=== PATIENT | female | born 1980 | race Caucasian/White ===

== ENCOUNTER → 2017-08-14 | Outpatient (CLI) | payer BC ==
[2017-08-14 16:27] LABS: Basophils % (A) 0 %; CH 29.2; CHCM 32.6; Eosinophils # (A) 0.2 k/uL (0-0.7); Eosinophils % (A) 3 %; HCT 42.8 % (34.0-46.0); HDW 3.18; HGB 14.1 gm/dL (11.4-16.0); Luc % (Auto) 2; Lymphocytes # (A) 3.7 k/uL (1.0-4.8); Lymphocytes % (A) 42 %; MCH 29.8 pg (25.0-35.0); MCHC 33.1 g/dL (31.0-37.0); MCV 90.3 fL (80.0-100.0); Mean Platelet Volume 7.6; Monocytes # (A) 0.4 k/uL (0-1.0); Monocytes % (A) 4 %; Neutrophils # (A) 4.1 k/uL (1.3-7.7); Neutrophils % (A) 48 %; RBC 4.74 m/uL (3.80-5.40); RDW 13.8 % (11.5-15.5); WBC 8.6 k/uL (3.8-10.6); WBC (Perox) 8.92
== END | disposition home or self-care (01) ==
LOC: MERGE 16:00 → LABPAT 16:00
PROVIDERS: ATTEND Obstetrics & Gynecology Obstetrics
DX: Z01.812 Encounter for preprocedural laboratory examination (principal); N92.0 Excessive and frequent menstruation with regular cycle; N84.0 Polyp of corpus uteri
CPT/HCPCS: 36415; 85025

== ENCOUNTER 2017-08-22 06:20 | Day surgery (SDC) | payer BC ==
[2017-08-17 16:41] VITALS: BMI 34.9
--- NOTE | 2017-08-21 17:06 | HP ---
HISTORY AND PHYSICAL HISTORY OF PRESENT ILLNESS: This is a 37-year-old female, 2, para 2-0-0-2 with last menstrual period of June 16 that complains of changes in her menstrual cycles. She states her menstrual cycles are regular every 28-30 days, lasting 5-7 days, they are heavy with clots. She does note dysmenorrhea associated with her menstrual cycle. She is currently desirous of treatment at this time. She does note 2 prior C-sections secondary to large for gestational size. PAST MEDICAL HISTORY: None. PAST SURGICAL HISTORY: 1. in 2006, 2010. 2. Tonsillectomy in 1991. MEDICATION LIST: Zoloft she takes daily. ALLERGIES: No known drug allergies. PAST FAMILY HISTORY: None. Mother and father are alive and well. REPRODUCTIVE HISTORY: She is a 2, para 2-0-0-2 with two prior C-sections with large for gestational age. No complications with these pregnancies. SOCIAL HISTORY: She is a 1 pack per day smoker and an occasional alcohol user. She denies illicit drug use. REVIEW OF SYSTEMS: She denies fever, headaches, changes in breast tenderness, new onset lumps, or nipple discharge. She denies nausea, vomiting, diarrhea, constipation. She admits to dysmenorrhea, menorrhagia with clots. She denies urgency, frequency, dysuria, or incontinence. PHYSICAL EXAM: She is a well-nourished, well-developed, alert female. HEENT:HEAD: Normocephalic, atraumatic. Neck is no lymphadenopathy at present. Chest: Her lungs were clear to auscultation bilaterally. Heart: Her heart rate was regular in rate and rhythm. No murmurs were appreciated on exam. Genitourinary her external genitalia was normal in appearance, no inflammatory lesions were present. The vaginal vault was noted to be normal in nature. No masses and pink rugae was noted. The bladder was nontender to palpation. The cervix was visualized. Healthy in appearance. Nontender. No discharge was noted. It was noted to be very anterior in presentation. The uterus was nontender. No masses were present and the uterus appeared to be midline on exam. There was no adnexal tenderness or masses. Her perineum was normal. Neurological: She was alert and oriented to time and place. ASSESSMENT: Dysfunctional uterine bleeding. PLAN: We will plan for hysteroscopy, dilation and curettage with endometrial ablation. We did recommend Cytotec prior to this procedure being done secondary to the position of her cervix. She is well aware of this and wished to proceed. An ultrasound was done, which revealed normal appearing uterus with questionable endometrial polyp. She is also aware of this. The procedure is reviewed with the patient in detail. Risks of perforation, bleeding, infection were discussed with the patient. Questions were answered and informed consent was obtained. MMODL / IJN: [id number] /
[~2017-08-22 06:20] MED LIST: HYDROmorphone 0.5 MG/0.5 ML SYRINGE IVP PRN; LACTATED RINGERS 1,000 ML IV SCH; ONDANSETRON 4 MG/2 ML VIAL IVP PRN; Pre Op ABX Message 1 EACH MISC MISCELLANE ONE
[2017-08-22] MEDS ORDERED: LIDOCAINE 1% 20 ML VIAL (10MG/ML) FOR IV START INTRADERMA ONE (06:45)
[2017-08-22] MEDS ORDERED: DEXAMETHASONE SOD PHOSPHATE 10 MG/ML 1 ML VIAL IV ONE (06:45)
[2017-08-22] MEDS ORDERED: fentaNYL (PF) 50 MCG/ML 2 ML AMP ONE (07:39)
[2017-08-22] MEDS ORDERED: GLYCOPYRROLATE 0.2 MG/ML 2 ML VIAL ONE (07:39)
[2017-08-22] MEDS ORDERED: KETOROLAC 30 MG/ML 1 ML VIAL ONE (07:39)
[2017-08-22] MEDS ORDERED: LIDOCAINE 1% INJ 10MG/ML (20 ML MDV) ONE (07:39)
[2017-08-22] MEDS ORDERED: MIDAZOLAM 2 MG/2 ML VIAL ONE (07:39)
[2017-08-22] MEDS ORDERED: PROPOFOL 10 MG/ML 20 ML VIAL IV ONE (07:39)
[2017-08-22] MEDS ORDERED: Acetaminophen-Codeine 300-30mg TAB PO PRN ×2 (08:16)
--- NOTE | 2017-08-22 08:23 | P.OP ---
Date of Procedure: 08/22/17 Preoperative Diagnosis: Dysfunctional uterine Bleeding, endometrial polyp, menorrhagia Postoperative Diagnosis: Same Procedure(s) Performed: Hysteroscopy, dilation and curettage, endometrial ablation with NovaSure Anesthesia: other (LMA) Surgeon: Aleksandra Shipley Estimated Blood Loss (ml): 10 IV fluids (ml): 300 Urine output (ml): 50 Pathology: other (Endometrial curettings) Condition: stable Disposition: PACU Indications for Procedure: Menorrhagia, endometrial polyps Operative Findings: Multiple endometrial polyps otherwise normal-appearing endometrial cavity visualized 3 times during procedure secondary to length of cavity. Description of Procedure: Patient was taken to the operating room where general anesthesia was obtained without difficulty by the anesthesia department. She was prepped and draped in the normal sterile fashion in the dorsal lithotomy position. Weighted speculum placed in the posterior vaginal vault. A red rubber catheter was then used to drain the bladder of clear yellow urine. The cervix was then dilated carefully to approximately 18-Ugandan. Hysteroscope was placed through the cervix and toward the endometrial cavity. On inspection of the patient's endometrial cavity the above-noted findings were visualized. A sharp curettage was performed until gritty texture was noted until all 4 quadrants of the endometrial cavity the polyps were removed and visualized grossly. The NovaSure device was inserted into the endometrial cavity and set according to the patient's uterine measurements a length of 6.5 width of 4.5 power of 161 for 67 seconds. The device was operated according to electronics manufacturer's instructions and was noted to pass the initial cavity assessment. Once the cavity assessment was passed the device was enabled and the cycle was completed. Afterwards device was removed from the endometrial cavity and hysteroscope was once again placed into the endometrial cavity to visualize the endometrial cavity. Secondary to the size of the cavity the fundus was visualized and minimal charring was noted from the endometrial ablation. All counts were correct 2 and patient tolerated procedure well she was taken the recovery room awake and in stable condition.
[2017-08-22 08:38] VITALS: TEMP 97.1
[2017-08-22] MEDS ORDERED: SERTRALINE 50 MG PO SCH (09:00)
[2017-08-22 09:16] VITALS: RESP 18
[2017-08-22 09:49] VITALS: BP 135/91; PULSE 88
== END 2017-08-22 10:24 | disposition home or self-care (01) ==
LOC: OR 06:20 → MERGE 06:20 → OR 10:24
PROVIDERS: ATTEND Obstetrics & Gynecology Obstetrics
DX: N87.9 Dysplasia of cervix uteri, unspecified (principal); N84.0 Polyp of corpus uteri; F17.200 Nicotine dependence, unspecified, uncomplicated; Z79.899 Other long term (current) drug therapy
CPT/HCPCS: 58563; 81025; 88305; J2250; J1100; J2405; J2001; J3010; J1885; J2704; J1170

== ENCOUNTER 2017-08-23 13:30 | Emergency (ER) | payer BC ==
[2017-08-23 13:34] VITALS: RESP 16
[2017-08-23] MEDS ORDERED: IBUPROFEN 800 MG TAB PO STA (14:48)
[2017-08-23] MEDS ORDERED: diphenhydrAMINE 50 MG CAP PO STA (14:48)
--- NOTE | 2017-08-23 14:54 | ED ---
General Adult HPI - General Chief complaint: Recheck/Abnormal Lab/Rx Stated complaint: Post Surgery Reaction Time Seen by Provider: 08/23/17 14:37 Source: patient Mode of arrival: ambulatory Limitations: no limitations - History of Present Illness Initial comments: Patient is a 37-year-old female status post endometrial ablation yesterday who presents with a chief complaint of warmth and flushing in her upper extremities. She was seen by her SEWER REPAIRER today who instructed her to go to the emergency department. On initial evaluation, vital signs are stable, patient is in no acute distress. Patient states she woke up this morning and felt that her arms were warm. Patient denies any pain or systemic fever. Patient states she does not have any pain from surgery. She does not have any bleeding or discharge. Patient has no other complaints at this time. She cannot identify any inciting incidences. There are no aggravating or alleviating factors. - Related Data Home Medications Medication Instructions Recorded Confirmed Sertraline [Zoloft] 50 mg PO DAILY 08/17/17 08/23/17 Ibuprofen [Motrin] 400 mg PO Q6HR PRN 08/23/17 08/23/17 Allergies Allergy/AdvReac Type Severity Reaction Status Date / Time No Known Allergies Allergy Verified 08/23/17 14:37 Review of Systems ROS Statement: Those systems with pertinent positive or pertinent negative responses have been documented in the HPI. ROS Other: All systems not noted in ROS Statement are negative. Constitutional: Denies: fever Eyes: Denies: vision change ENT: Denies: congestion Respiratory: Denies: dyspnea Cardiovascular: Denies: chest pain Endocrine: Denies: fatigue Gastrointestinal: Denies: abdominal pain, nausea, vomiting Genitourinary: Denies: dysuria, discharge Musculoskeletal: Denies: back pain Skin: Reports: rash Neurological: Denies: headache Past Medical History Past Medical History: No Reported History History of Any Multi-Drug Resistant Organisms: None Reported Additional Past Surgical History / Comment(s): uterine ablation Past Psychological History: Anxiety Smoking Status: Current every day smoker Past Alcohol Use History: None Reported Past Drug Use History: None Reported General Exam Limitations: no limitations General appearance: alert, in no apparent distress Head exam: Present: atraumatic, normocephalic Eye exam: Present: normal appearance Respiratory exam: Present: normal lung sounds bilaterally Cardiovascular Exam: Present: regular rate, normal rhythm, normal heart sounds GI/Abdominal exam: Present: soft. Absent: distended, tenderness Rectal exam: Present: deferred Extremities exam: Present: other (Patient has warmth and redness to bilateral upper extremities. The skin is not raised, it is nontender.) Neurological exam: Present: alert, oriented X3 Psychiatric exam: Present: normal affect, normal mood Skin exam: Present: warm, dry, intact Course Vital Signs 08/23/17 08/23/17 13:31 15:18 Temperature 98.3 F 98.4 F Pulse Rate 84 Respiratory 16 Rate Blood Pressure 170/84 O2 Sat by Pulse 99 Oximetry Medical Decision Making - Medical Decision Making Patient is a 37-year-old female status post endometrial ablation yesterday presents from her SEWER REPAIRER's office with a chief complaint of bilateral upper extremity rash, and warmth. Initial evaluation, patient appears be in no distress, she denies any sort of pain. She is breathing and conversing easily. Distribution of the warmth and erythema is the outer upper extremities, across the top of her back. I asked the patient if she came in contact with any new materials or products. She states that she washed with Carmen soap yesterday as instructed however she does not know if there was a blanket wrapped around her shoulders after surgery. Patient will be given Motrin, and Benadryl, and reevaluated. At this time, vital signs are stable and the patient appears comfortable. It is less likely that there is a life- threatening etiology causing her symptoms today. 3:50 PM Patient was given a dose of Motrin, and a dose of droperidol. On reexamination , the affected area has improved though her upper arms are still somewhat warm. There did not appear to be any infectious etiology present however examination is more consistent with an ALLERGIC, or contact dermatitis. Patient remained stable, I discussed the findings, and my impression with the patient. At this time, patient is agreeable with discharge and follow-up to primary care and OB. Patient was instructed to return to the emergency department if her symptoms worsen or change in anyway. Disposition Clinical Impression: Rash and nonspecific skin eruption Disposition: HOME SELF-CARE Condition: Good Instructions: Acute Rash (ED) Referrals: Rohan Pelletier MD [Primary Care Provider] - 1-2 days
[2017-08-23 16:15] VITALS: BP 128/70; PULSE 76; TEMP 97.9
== END 2017-08-23 16:21 | disposition home or self-care (01) ==
LOC: MERGE 13:30 → EC 13:30
DX: R21 Rash and other nonspecific skin eruption (principal); R20.8 Other disturbances of skin sensation; R23.2 Flushing; F41.9 Anxiety disorder, unspecified; F17.200 Nicotine dependence, unspecified, uncomplicated; Z79.899 Other long term (current) drug therapy
CPT/HCPCS: 99283

== ENCOUNTER → 2017-12-04 | Outpatient (CLI) | payer BC ==
[2017-12-04 15:58] LABS: Basophils % (A) 1 %; Eosinophils # (A) 0.2 k/uL (0-0.7); Eosinophils % (A) 2 %; HCT 44.4 % (34.0-46.0); HGB 14.6 gm/dL (11.4-16.0); Lymphocytes # (A) 3.1 k/uL (1.0-4.8); Lymphocytes % (A) 38 %; MCH 30.1 pg (25.0-35.0); MCHC 32.9 g/dL (31.0-37.0); MCV 91.4 fL (80.0-100.0); Mean Platelet Volume 8.6; Monocytes # (A) 0.3 k/uL (0-1.0); Monocytes % (A) 4 %; Neutrophils # (A) 4.4 k/uL (1.3-7.7); Neutrophils % (A) 54 %; Platelet Count 212 k/uL (150-450); RBC 4.86 m/uL (3.80-5.40); RDW 15.9 % (11.5-15.5); WBC 8.1 k/uL (3.8-10.6)
[2017-12-04 16:04] LABS: Anion Gap 12 mmol/L; Blood Urea Nitrogen 17 mg/dL (7-17); Carbon Dioxide 28 mmol/L (22-30); Chloride 102 mmol/L (98-107); Glucose 94 mg/dL (74-99); Sodium 142 mmol/L (137-145)
== END | disposition home or self-care (01) ==
LOC: LABPAT 15:14
PROVIDERS: ATTEND Obstetrics & Gynecology Obstetrics
DX: Z01.812 Encounter for preprocedural laboratory examination (principal); N93.9 Abnormal uterine and vaginal bleeding, unspecified
CPT/HCPCS: 36415; 80051; 82565; 82947; 84520; 85025; 86850; 86900; 86901; 87086

== ENCOUNTER 2017-12-12 06:03 | Day surgery (SDC) | payer BC ==
[2017-12-06 08:57] VITALS: BMI 35.7
--- NOTE | 2017-12-11 16:25 | P.HPOB ---
History of Present Illness H&P Date: 12/11/17 Chief Complaint: menorrhagia, failed EA This is a 37yo that presents with c/o HMB. She had an EA done in august and notes continued bleeding and clots. US done revealed a normal sized uterus Review of Systems Constitutional: Denies fever Ears, nose, mouth and throat: Denies headache Cardiovascular: Denies chest pain Respiratory: Denies cough, Denies dyspnea Gastrointestinal: Denies constipation, Denies diarrhea Genitourinary: Reports menorrhagia Menstruation: Reports period heavy Past Medical History Past Medical History: No Reported History History of Any Multi-Drug Resistant Organisms: None Reported Past Surgical History: Section, Tonsillectomy Additional Past Surgical History / Comment(s): uterine ablation, C SECTION X2 Past Anesthesia/Blood Transfusion Reactions: Previous Problems w/ Anesthesia, Postoperative Nausea & Vomiting (PONV) Additional Past Anesthesia/Blood Transfusion Reaction / Comment(s): SKIN WAS RED AND WAS GIVEN BENADRYL AND SENT HOME FROM THE ER " UNKNOWN IF RELATED TO HER SURGERY HAD CAME IN THE NEXT DAY" Smoking Status: Current every day smoker - Past Family History Mother Family Medical History: No Reported History Medications and Allergies Home Medications Medication Instructions Recorded Confirmed Type Cholecalciferol (Vitamin D3) 2,000 unit PO DAILY 12/05/17 12/05/17 History [Vitamin D3] Escitalopram Oxalate [Lexapro] 10 mg PO DAILY 12/05/17 12/05/17 History Allergies Allergy/AdvReac Type Severity Reaction Status Date / Time No Known Allergies Allergy Verified 12/05/17 14:28 Exam Osteopathic Statement: *. No significant issues noted on an osteopathic structural exam other than those noted in the History and Physical/Consult. Assessment and Plan (1) Menorrhagia Narrative/Plan: given her h/o EA and no change in her cycles will proceed with [facility]/ DC. possible open procedure. risks are reviewed in detail including but not limited to infection bleeding damage to bladder, bowel, ureteric injury. she states understanding and wishes to proceed. Status: Acute Code(s): N92.0 - EXCESSIVE AND FREQUENT MENSTRUATION WITH REGULAR CYCLE SNOMED Code(s): 099509478
[~2017-12-12 06:03] MED LIST changes: +DEXAMETHASONE SOD PHOSPHATE 10 MG/ML 1 ML VIAL IV ONE; -HYDROmorphone 0.5 MG/0.5 ML SYRINGE IVP PRN; -LACTATED RINGERS 1,000 ML IV SCH; +MIDAZOLAM 2 MG/2 ML VIAL IV PRN; +MORPHINE SULFATE 4 MG/ML SYRINGE IV PRN; +ONDANSETRON 4 MG/2 ML VIAL IVP ONE; -ONDANSETRON 4 MG/2 ML VIAL IVP PRN; -Pre Op ABX Message 1 EACH MISC MISCELLANE ONE; +SCOPOLAMINE 1.5MG/72HR PATCH TRANSDERM ONE; +ceFAZolin IN SWFI 2 GM/20 ML SYRINGE IVP ONE
[2017-12-12] MEDS: LACTATED RINGERS 1,000 ML IV SCH ×3 (06:45→16:24)
[2017-12-12] MEDS ORDERED: LIDOCAINE 1% 20 ML VIAL (10MG/ML) FOR IV START INTRADERMA ONE (06:50)
[2017-12-12] MEDS ORDERED: BUPIVACAINE (PF) 0.25% 30 ML VIAL SQ ONE (07:24)
[2017-12-12] MEDS ORDERED: KETOROLAC 30 MG/ML 1 ML VIAL ONE (07:30)
[2017-12-12] MEDS ORDERED: GLYCOPYRROLATE 0.2 MG/ML 2 ML VIAL ONE (07:30)
[2017-12-12] MEDS ORDERED: NEOSTIGMINE 1 MG/ML 10 ML VIAL ONE (07:30)
[2017-12-12] MEDS ORDERED: SUCCINYLCHOLINE CHLORIDE 100 MG/5 ML SYR IV ONE (07:30)
[2017-12-12] MEDS ORDERED: ROCURONIUM BROMIDE 10 MG/ML 10 ML VIAL IV ONE (07:30)
[2017-12-12] MEDS ORDERED: PROPOFOL 10 MG/ML 20 ML VIAL IV ONE (07:30)
[2017-12-12] MEDS ORDERED: fentaNYL (PF) 50 MCG/ML 2 ML AMP ONE (07:30)
[2017-12-12] MEDS ORDERED: DEXAMETHASONE SOD PHOS (MDV) 100 MG/10 ML VIAL ONE (07:30)
[2017-12-12] MEDS ORDERED: MIDAZOLAM 2 MG/2 ML VIAL ONE (07:30)
[2017-12-12] MEDS ORDERED: HYDROmorphone (PF) 1 MG/ML ONE (07:30)
[2017-12-12] MEDS ORDERED: Acetaminophen-Codeine 300-30mg TAB PO PRN ×2 (09:34)
[2017-12-12] MEDS ORDERED: ONDANSETRON 4 MG/2 ML VIAL IVP PRN (09:34)
[2017-12-12] MEDS ORDERED: LACTATED RINGERS 1,000 ML IV ONE (09:41)
--- NOTE | 2017-12-12 09:44 | P.OP ---
Date of Procedure: 12/12/17 Preoperative Diagnosis: Menorrhagia, failed endometrial ablation Postoperative Diagnosis: Same Procedure(s) Performed: Robotic-assisted vaginal hysterectomy, diagnostic cystoscopy Anesthesia: WALLYA Surgeon: Aleksandra Shipley Vehicle Sales Professional #1: Clement Mckinney Estimated Blood Loss (ml): 10 IV fluids (ml): 1,700 Urine output (ml): 75 Pathology: other (Uterus cervix fallopian tubes) Condition: stable Disposition: PACU Indications for Procedure: Failed endometrial ablation with noted heavy menstrual bleeding Operative Findings: Enlarged globular uterus normal ovaries bilaterally normal upper abdomen Description of Procedure: Patient was taken to the operating room after informed consent was obtained risks were reviewed in detail including but not limited to infection, bleeding, damage to bladder, bowel, ureter. Patient states understanding and was taken to the operating room. General anesthesia was obtained by the anesthesia department. She was then prepped and draped in the normal sterile fashion in the dorsal lithotomy position. A Olmos catheter was in placed. Weighted speculum was placed in the posterior vaginal vault the Intralipid the cervix was grasped with a single-tooth tenaculum the endocervical canal was then dilated and a I-lighting uterine manipulator was placed. Attention was then turned to the patient's abdomen where approximately 3 fingerbreadths above the umbilicus a small skin incision was made. Through this incision the Veress needle was placed. CO2 insufflation was allowed to occur once a drop in CO2 pressure was noted. 4 L of gas were used to obtain pneumoperitoneum. At this time the incision was elongated to 12 mm a 12 mm trocar and sleeve was placed through the skin incision for the pneumoperitoneum. At this point the above- noted findings were visualized. The additional port sites were then placed in the usual fashion at 10 cm lateral and 3 cm inferior to the midline port. Operative ports and placed under direct visualization. In the left upper quadrant 12 mm trocar and sleeve was placed under direct visualization. At this point the da Rolly robot was docked in usual fashion. In the operative arms are placed. In the right operative on the monopolar scissors is displaced , in the left operative arm bipolar forceps was placed. Attention was then turned to the patient's left fallopian tube which was grasped gently and transected from the mesosalpinx. This continued to the uterine ovarian ligament which was coagulated distally and proximally and divided this continued through the broad ligament toward the round. Hemostasis was appreciated. The round was then coagulated and transected hemostasis was appreciated. The bladder flap from the left was created using sharp and blunt dissection. Attention was then turned to the patient's right fallopian tube which was grasped elevated and it was transected off of the mesosalpinx with good hemostasis being appreciated. The utero-ovarian ligament was then coagulated and divided hemostasis was appreciated. This continued through the broad ligament and toward the round which was coagulated and transected. The bladder flap from the right was then created using sharp and blunt dissection. A Ray-Akira was then passed and the abdomen as a means to further dissect the bladder away from the operating field. The Ray-Akira was then removed from the abdomen. The descending branch of the uterine artery was then visualized regular distally and proximally and then divided, this was then repeated on the opposite side. At this point the only remaining attachment was the vaginal detachment therefore colpotomy incision was made in a circumferential fashion and the uterus was delivered through the vaginal opening. At this point the pelvis was copiously irrigated and hemostasis was appreciated and the vaginal cuff was closed with 0 Vicryl in a [id number] fashion. For sutures were used to obtain closure. At this point the incision was inspected all of the pedicles were hemostatic no bleeding was noted and the incision was removed from the patient's abdomen in the da Rolly was undocked in the usual fashion. Attention was then turned the patient's Olmos catheter which was removed without difficulty and cystoscopy was performed. A cystoscope was placed through the urethra toward the bladder the bladder problems noted and both ureteral orifices were noted to be spilling clear yellow urine. At this point the cystoscopy was complete cystoscope was removed and the Olmos catheter was replaced. Next At this time the skin incisions were closed with 4-0 Vicryl in a subcuticular fashion Steri-Strips and sterile dressings were applied as needed next OR correct 2 patient tolerated procedure well and was taken to the recovery room awake and in stable condition
[2017-12-12] MEDS ORDERED: ARTIFICIAL TEARS-HYPROMELLOSE DROPS 15 ML BTL BOTH EYES PRN (11:10)
[2017-12-12] MEDS ORDERED: diphenhydrAMINE 50 MG/ML 1 ML VIAL IVP PRN (11:36)
[2017-12-12] MEDS ORDERED: diphenhydrAMINE 50 MG/ML 1 ML VIAL IVP STA (11:36)
[2017-12-12] MEDS ORDERED: IBUPROFEN IV 800 MG in SODIUM CHLORIDE 0.9% 250 ML IV ONE (12:00)
[2017-12-12] MEDS: LIDOCAINE BOTH EYES SCH (16:19)
[2017-12-12] MEDS: CIPROFLOXACIN 0.3% OPHTH SOLN 5 ML BTL BOTH EYES SCH ×2 (16:19→17:51)
[2017-12-12] MEDS: GENTAMICIN/PREDNISOL AC OPHTH OINT 3.5GM BOTH EYES SCH ×2 (17:50→19:30)
[2017-12-12] MEDS: SENNOSIDES-DOCUSATE SODIUM 1 EACH TAB PO SCH (19:59)
[2017-12-12] MEDS ORDERED: ACETAMINOPHEN IV (For NPO) 1,000 MG in EMPTY BAG 1 BAG IVPB ONE (23:00)
[2017-12-13] MEDS: LACTATED RINGERS 1,000 ML IV SCH (00:44)
[2017-12-13 08:14] LABS: Basophils % (A) 0 %; Eosinophils % (A) 0 %; HGB 13.4 gm/dL (11.4-16.0); Lymphocytes # (A) 2.1 k/uL (1.0-4.8); Lymphocytes % (A) 17 %; MCH 29.7 pg (25.0-35.0); MCHC 32.7 g/dL (31.0-37.0); MCV 90.9 fL (80.0-100.0); Mean Platelet Volume 7.9; Monocytes # (A) 0.5 k/uL (0-1.0); Monocytes % (A) 4 %; Neutrophils # (A) 9.2 k/uL (1.3-7.7); Neutrophils % (A) 77 %; Platelet Count 216 k/uL (150-450); RBC 4.51 m/uL (3.80-5.40); RDW 14.4 % (11.5-15.5); WBC 12.1 k/uL (3.8-10.6)
--- NOTE | 2017-12-13 08:45 | P.PN ---
Subjective Progress Note Date: 12/13/17 Principal diagnosis: Postop day 1 status post robot assisted vaginal hysterectomy, diagnostic cystoscopy Lisa has done well postoperatively, she did note some extreme dry eye which is feeling better this morning after steroid/antibiotic eye drops. She denies any pain from her surgery itself. She is ambulating and voiding without difficulty. She is tolerating regular diet without nausea or vomiting. She denies vaginal bleeding Objective - Vital Signs Vital signs: Vital Signs Temp 97.9 F 12/13/17 04:00 Pulse 65 12/13/17 04:00 Resp 16 12/13/17 04:00 BP 109/63 12/13/17 04:00 Pulse Ox 98 12/13/17 00:00 Intake & Output 12/12/17 12/13/17 12/13/17 18:59 06:59 18:59 Intake Total 1900 1650 Output Total 1285 1500 Balance 615 150 Intake: IV 1900 1050 Ibuprofen IV 800 mg In 250 Sodium Chloride 0.9% 250 ml @ 500 mls/hr IV ONCE ONE Rx#:[id number] Lactated Ringers 1,000 ml 800 @ 100 mls/hr IV .Q10H ESTEVAN Rx#:[id number] Oral 600 Output: Urine 1275 1500 Uretheral (Olmos) 300 600 Estimated Blood Loss 10 - Constitutional General appearance: Present: cooperative, no acute distress - Gastrointestinal General gastrointestinal: Present: normal bowel sounds (Incision sites are clean dry and intact) - Labs CBC & Chem 7: 12/13/17 07:48 Labs: Abnormal Lab Results - Last 24 Hours (Table) 12/13/17 Range/Units 07:48 WBC 12.1 H (3.8-10.6) k/uL Neutrophils # 9.2 H (1.3-7.7) k/uL Assessment and Plan (1) Menorrhagia Narrative/Plan: We'll plan for discharge this morning. Discharge instructions are reviewed with the patient and questions are answered. We will follow up in 2 weeks in the office if she should have any further questions or concerns prior to this I urged her to make an appointment prior. Current Visit: Yes Status: Acute Code(s): N92.0 - EXCESSIVE AND FREQUENT MENSTRUATION WITH REGULAR CYCLE SNOMED Code(s): 932123228
--- NOTE | 2017-12-13 08:48 | P.DS ---
Providers Date of admission: 12/12/2017 Expected date of discharge: 12/13/17 Attending physician: Aleksandra Shipley Consults: 12/12/17 17:15 Consult Physician Urgent Consulting Provider: Dann Giron Consult Reason/Comments: PT C/O BILATERAL EYE PAIN AFTER SURGERY Do you want consulting provider notified?: Already Contacted Primary care physician: Rohan Pelletier - Discharge Diagnosis(es) (1) Menorrhagia Current Visit: Yes Status: Acute Hospital Course: Patient was admitted for robotic-assisted vaginal hysterotomy with diagnostic cystoscopy. She states she is without complaints this morning surgically, she did struggle with some extreme dry eye postoperatively and she is feeling better. She denies vaginal bleeding she is ambulating and voiding without difficulty. She is tolerating regular diet without nausea or vomiting. She has only taken one Motrin postoperatively. Patient Condition at Discharge: Good Plan - Discharge Summary Discharge Rx Participant: No New Discharge Prescriptions: No Action Escitalopram Oxalate [Lexapro] 10 mg PO DAILY Cholecalciferol (Vitamin D3) [Vitamin D3] 2,000 unit PO DAILY Discharge Medication List Cholecalciferol (Vitamin D3) [Vitamin D3] 2,000 unit PO DAILY 12/05/17 [History] Escitalopram Oxalate [Lexapro] 10 mg PO DAILY 12/05/17 [History] Follow up Appointment(s)/Referral(s): Aleksandra Shipley DO [Doctor of Osteopathic Medicine] - 2 Weeks Patient Instructions/Handouts: Hysterectomy (DC)
[2017-12-13] MEDS ORDERED: ESCITALOPRAM 10 MG TAB PO SCH (09:00)
[2017-12-13] MEDS: GENTAMICIN/PREDNISOL AC OPHTH OINT 3.5GM BOTH EYES SCH (09:51)
[2017-12-13] MEDS: SENNOSIDES-DOCUSATE SODIUM 1 EACH TAB PO SCH (09:51)
[2017-12-13 10:41] VITALS: BP 114/68; PULSE 58; RESP 18; TEMP 98.3
[2017-12-13] MEDS ORDERED: diphenhydrAMINE 50 MG CAP PO STA (11:17)
[2017-12-13] MEDS ORDERED: IBUPROFEN 600 MG TAB PO STA (11:19)
[2017-12-13] MEDS: LIDOCAINE BOTH EYES SCH (12:00)
[2017-12-13] MEDS: CIPROFLOXACIN 0.3% OPHTH SOLN 5 ML BTL BOTH EYES SCH (12:00)
== END 2017-12-13 11:58 | disposition home or self-care (01) ==
LOC: OR 06:03 → 4FBP 09:42 → OR 12-13 11:58
PROVIDERS: ATTEND Obstetrics & Gynecology Obstetrics
DX: N92.0 Excessive and frequent menstruation with regular cycle (principal); N85.2 Hypertrophy of uterus; Z98.890 Other specified postprocedural states; F17.210 Nicotine dependence, cigarettes, uncomplicated; F32.9 Major depressive disorder, single episode, unspecified; Z79.899 Other long term (current) drug therapy
CPT/HCPCS: 58552; S2900; 85025; 86850; 86900; 86901; 88307